=== PATIENT | female | born 1995 | race Caucasian/White ===

== ENCOUNTER 2021-10-24 01:32 | Emergency (ER) | payer SELFPAY ==
--- NOTE | 2021-10-24 01:50 | NUR ---
Patient went up to reference test clerk's window and stated "I change my mind, I don't want to be seen anymore."
--- NOTE | 2021-10-24 02:00 | NUR ---
Patient was not traiged or seen by ERMD.
== END 2021-10-24 02:00 | disposition left against medical advice (07) ==
LOC: ER 01:48
DX: Z53.21 Procedure and treatment not carried out due to patient leaving prior to being seen by health care provider (principal)